=== PATIENT | female | born 1960 | race African-American/Black ===

== ENCOUNTER 2016-09-14 14:59 | Emergency (ER) | payer OTHER ==
[~2016-09-14] VITALS: Ht 162.6 cm; Wt 76.2 kg
[2016-09-14 15:01] VITALS: BP 151/91
[2016-09-14] MEDS ORDERED: NAPROSYN500 MG PO (15:26)
== END 2016-09-14 15:53 | disposition home or self-care (01) ==
LOC: ER 14:59
DX: S50.12XA Contusion of left forearm, initial encounter (principal); S60.222A Contusion of left hand, initial encounter; Z91.040 Latex allergy status; Z88.8 Allergy status to other drugs, medicaments and biological substances; F17.210 Nicotine dependence, cigarettes, uncomplicated; F10.99 Alcohol use, unspecified with unspecified alcohol-induced disorder; W50.0XXA Accidental hit or strike by another person, initial encounter; Y93.89 Activity, other specified; Y92.89 Other specified places as the place of occurrence of the external cause; Y99.8 Other external cause status

== ENCOUNTER 2018-05-13 23:36 | Inpatient (IN) | payer OTHER ==
[~2018-05-13] VITALS: Ht 162.6 cm; Wt 74.8 kg
--- NOTE | ~2018-05-13 | EKG ---
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
[~2018-05-13 23:36] MED LIST: ASPIR 8181 MG PO; BENTYL 20 MG TA20 M1 PO; DITROPAN XL5 M1 PO; GUAIFEN-CODEINE10 ML PO; HYDROCHLOROTHIA25 M1 PO; METFORMIN HCL500 MG PO; NAPROSYN500 MG PO; NEURONTIN 300300 M1 PO; PREDNISONE 20 M20 MG PO; VENTOLIN HFA 1818 GM INH
[2018-05-13 23:47] VITALS: BP 167/79
[2018-05-14 00:16] LABS: ABSOLUTE NEUTROPHILS 3.5 thou/uL (1.4-8.2); BASOPHILS 0.2 % (0.0-2.0); EOSINOPHILS 3.2 % (0.0-3.0); HEMATOCRIT 40.2 % (37.0-47.0); HEMOGLOBIN 13.6 gm/dL (12.0-15.0); LYMPHOCYTES 46.6 % (24.0-44.0); MCH 31.8 pg (26.0-34.0); MCHC 33.8 g/dL (28.0-37.0); MONOCYTES 4.9 % (1.0-8.0); PLATELET COUNT 182 thou/uL (150-400); POLYS 45.1 % (36.0-66.0); RBC 4.28 mil/uL (4.20-5.00); WBC 7.8 thou/uL (4.0-11.0)
[2018-05-14 00:32] LABS: ANION GAP 8 mmol/L (7-16); BUN 6 mg/dL (7-18); CALCIUM 8.8 mg/dL (8.5-10.1); CHLORIDE 102 mmol/L (98-107); CO2 26 mmol/L (21-32); CREATININE 0.8 mg/dL (0.6-1.0); GLUCOSE 329 mg/dL (74-106); POTASSIUM 3.8 mmol/L (3.5-5.1); SODIUM 136 mmol/L (136-145)
[2018-05-14 00:37] LABS: ALBUMIN 3.5 g/dL (3.4-5.0); MAGNESIUM 1.7 mg/dL (1.8-2.4); SGOT 16 U/L (15-37); SGPT 18 U/L (30-65); TOTAL BILIRUBIN 0.4 mg/dL (<0.1-1.0); TOTAL PROTEIN 7.1 g/dL (6.4-8.2); TROPONIN-I <0.06 ng/mL (<0.06)
[2018-05-14 02:10] LABS: CHOLESTEROL 149 mg/dL (<200); HDL CHOLESTEROL 64 mg/dL (>40); LDL CHOLESTEROL 56 mg/dL (<100); TC:HDL 2.3 Ratio (Not establshd); TRIGLYCERIDE 146 mg/dL (<150); VLDL 29 mg/dL (<40)
[2018-05-14 02:23] LABS: SERUM ASSESSMENT Clear
[2018-05-14 03:00] VITALS: BP 121/66
--- NOTE | 2018-05-14 06:22 | NUR ---
PATIENT IS ALERT AND ORIENTED. PATIENT IS SBA. PENDING POSSIBLE STRESS TEST. PATIENTS PAIN IS CONROLLED. PATIENT FELL RECENTELY AT HOME. HX OF CVA. PATIENT STATES WEAKNESS ON LT SIDE BUT MARINE STEAMFITTER FEEL EQUAL. PATIENT IS ROOM AIR. PATIENT IS RESTING COMFORTABLEY. PATIENTS GAIT IS IMPAIRED. PATIENT CO OF SPASMS FROM CVA. PATIENT IS PROGRESSING TO GOALS. WCM.
[2018-05-14 06:35] LABS: CALCIUM 8.7 mg/dL (8.5-10.1); CREATININE 0.7 mg/dL (0.6-1.0); POTASSIUM 3.9 mmol/L (3.5-5.1)
[2018-05-14 07:44] VITALS: BP 123/65
[2018-05-14] MEDS ORDERED: ASPIR 8181 MG PO (09:07)
[2018-05-14] MEDS ORDERED: NAPROSYN500 MG PO (09:07)
[2018-05-14] MEDS ORDERED: HYDROCHLOROTHIA25 M1 PO (09:08)
[2018-05-14] MEDS ORDERED: NEURONTIN 300300 M1 PO ×2 (09:08)
[2018-05-14] MEDS ORDERED: DITROPAN XL5 M1 PO (09:08)
[2018-05-14] MEDS ORDERED: VENTOLIN HFA 1818 GM INH (09:09)
[2018-05-14 10:01] VITALS: BP 123/65
--- NOTE | 2018-05-14 10:32 | NUR ---
Assumed care of patient at 0700. Vitals have been stable. Alert and oriented x4. Complaints of non-cardiac right sided chest pain. Morphine given this morning with good effect. No other complaints. Patient with left sided weakness from previous CVA. Fall precautions in place. Discharge orders received. Reviewed instructions and follow up instructions with patient and family at bedside. Verbalizes understanding. Provided with prescriptions. IV and telemetry discontinued. Belongings gathered. Patient states no home meds locked in pharmacy and no belongings in security. Transported to private vehicle via wheelchair to discharge home.
[2018-05-14 23:05] LABS: GLYCOHEMOGLOBIN (HGB A1C) 12.8 % (4.8-5.6)
--- NOTE | 2018-05-15 21:56 | EKG ---
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
== END 2018-05-14 10:31 | disposition home or self-care (01) | DRG 605 ==
LOC: ER 23:36 → EROBS 05-14 00:42 → ER 05-14 00:42 → EROBS 05-14 01:33 → 3W 05-14 02:45
PROVIDERS: Emergency Medicine; Nurse Practitioner Family; ADMIT Hospitalist
DX: S20.211A Contusion of right front wall of thorax, initial encounter (principal); I69.354 Hemiplegia and hemiparesis following cerebral infarction affecting left non-dominant side; E11.65 Type 2 diabetes mellitus with hyperglycemia; I10 Essential (primary) hypertension; E11.40 Type 2 diabetes mellitus with diabetic neuropathy, unspecified; J45.909 Unspecified asthma, uncomplicated; F17.210 Nicotine dependence, cigarettes, uncomplicated; S09.90XA Unspecified injury of head, initial encounter; W18.30XA Fall on same level, unspecified, initial encounter; Z79.899 Other long term (current) drug therapy; Z88.8 Allergy status to other drugs, medicaments and biological substances; Z91.040 Latex allergy status; Y93.89 Activity, other specified; Y92.89 Other specified places as the place of occurrence of the external cause; Y99.8 Other external cause status
CPT/HCPCS: 10879

== ENCOUNTER 2018-05-18 21:24 | Emergency (ER) | payer OTHER ==
[~2018-05-18] VITALS: Ht 162.6 cm; Wt 74.8 kg
[2018-05-18 22:12] LABS: BASOPHILS 1.2 % (0.0-2.0); EOSINOPHILS 3.7 % (0.0-3.0); HEMATOCRIT 41.8 % (37.0-47.0); HEMOGLOBIN 14.2 gm/dL (12.0-15.0); LYMPHOCYTES 43.4 % (24.0-44.0); MCH 31.9 pg (26.0-34.0); MCV 93.8 fL (80.0-100.0); PLATELET COUNT 206 thou/uL (150-400); POLYS 45.7 % (36.0-66.0); RBC 4.46 mil/uL (4.20-5.00); RDW 14.2 % (10.5-14.5); WBC 8.9 thou/uL (4.0-11.0)
[2018-05-18 22:22] LABS: ANION GAP 8 mmol/L (7-16); BUN 10 mg/dL (7-18); CALCIUM 9.8 mg/dL (8.5-10.1); CHLORIDE 99 mmol/L (98-107); CO2 29 mmol/L (21-32); CREATININE 0.9 mg/dL (0.6-1.0); GLUCOSE 343 mg/dL (74-106); POTASSIUM 3.8 mmol/L (3.5-5.1); SODIUM 136 mmol/L (136-145)
[2018-05-18 22:31] LABS: ALBUMIN 3.8 g/dL (3.4-5.0); LIPASE 81 U/L (73-393); SGOT 19 U/L (15-37); SGPT 19 U/L (30-65); TOTAL BILIRUBIN 0.4 mg/dL (<0.1-1.0); TOTAL PROTEIN 7.7 g/dL (6.4-8.2); TROPONIN-I <0.06 ng/mL (<0.06)
[2018-05-18 23:04] LABS: AMP/METHAMP Negative (Negative); BARBITURATES Negative (Negative); BENZODIAZEPINES Negative (Negative); COCAINE Negative (Negative); METHADONE Negative (Negative); OPIATES Negative (Negative); PCP Negative (Negative)
[2018-05-19 00:40] VITALS: BP 120/65
--- NOTE | 2018-05-19 16:37 | EKG ---
[address] [place] [address] ELECTROCARDIOGRAM REPORT Name: YOLANDA ROWE [id number] ������������������ Admission: 05/18/18 ������������������ Attend Phys: Discharge: 05/19/18 ������������������ Date of : 62 Report #: [id number] ����������������������������������������������������������������� [id number] THIS REPORT FOR: //name// [facility] ED Test Date: 2018-05-18 Test Time: 21:35:53 Pat Name: YOLANDA ROWE Department: Room: Gender: F Mixer [employer]: : 1960 Requested By: Gisele Austin Order Number: [id number] MD: Jay Cavazos Measurements Intervals [place] Rate: 91 P: 28 [place]: 139 QRS: 3 QRSD: 92 T: 30 QT: 357 QTc: 440 Interpretive Statements Sinus rhythm Baseline wander in lead(s) V2 Compared to ECG 05/14/2018 00:09:35 Left ventricular hypertrophy no longer present Electronically Signed On 05-19-2018 16:37:18 BODY DIE MAKER by Jay Cavazos [email or web address] ��������������������������������������������� <ELECTRONICALLY SIGNED> ���������������������������������������� By: Jay Cavazos MD ��������������������������������������������� 05/19/18 1637 D: [id number] Jay Cavazos MD /MARILY
== END 2018-05-19 00:40 | disposition home or self-care (01) ==
LOC: ER 21:24
PROVIDERS: Emergency Medicine; Nurse Practitioner Family
DX: G44.209 Tension-type headache, unspecified, not intractable (principal); E11.43 Type 2 diabetes mellitus with diabetic autonomic (poly)neuropathy; I10 Essential (primary) hypertension; R47.81 Slurred speech; Z72.0 Tobacco use; Z86.73 Personal history of transient ischemic attack (TIA), and cerebral infarction without residual deficits; K58.9 Irritable bowel syndrome, unspecified; Z88.8 Allergy status to other drugs, medicaments and biological substances; Z91.040 Latex allergy status

== ENCOUNTER 2018-07-21 00:24 | Emergency (ER) | payer OTHER ==
[~2018-07-21] VITALS: Ht 162.6 cm; Wt 72.6 kg
[2018-07-21] MEDS ORDERED: JANUVIA100 MG PO (00:36)
[2018-07-21 01:05] LABS: URINE BILIRUBIN NEGATIVE (Negative); URINE BLOOD NEGATIVE (Negative); URINE CLARITY CLEAR; URINE COLOR YELLOW; URINE GLUCOSE-RANDOM* TRACE (Negative); URINE KETONES NEGATIVE (Negative); URINE LEUKOCYTES-REFLEX NEGATIVE (Negative); URINE NITRITE-REFLEX NEGATIVE (Negative); URINE PROTEIN (DIPSTICK) NEGATIVE (Negative); URINE UROBILINOGEN 0.2 E.U./dl (0.2-1.0)
[2018-07-21] MEDS ORDERED: MIRALAX17 GM PO (02:30)
[2018-07-21 03:09] VITALS: BP 116/50
== END 2018-07-21 03:10 | disposition home or self-care (01) ==
LOC: ER 00:24
PROVIDERS: Emergency Medicine
DX: R33.9 Retention of urine, unspecified (principal); K59.00 Constipation, unspecified; F17.210 Nicotine dependence, cigarettes, uncomplicated; I10 Essential (primary) hypertension; E11.40 Type 2 diabetes mellitus with diabetic neuropathy, unspecified; M19.90 Unspecified osteoarthritis, unspecified site; K58.9 Irritable bowel syndrome, unspecified; Z88.8 Allergy status to other drugs, medicaments and biological substances; Z91.040 Latex allergy status; Z86.73 Personal history of transient ischemic attack (TIA), and cerebral infarction without residual deficits